=== PATIENT | female | born 1990 | race Caucasian/White ===

== ENCOUNTER 2023-11-14 15:30 | Emergency (ER) | payer BC, SELFPAY ==
[2023-11-14 15:33] VITALS: BP 155/93
--- NOTE | 2023-11-14 15:36 | ED.GENMED ---
History of Present Illness
General
Chief Complaint: Skin Problem
Time Seen by Provider: 11/14/23 15:36
Past History
Past History
ED Past Medical History: Other (Celiac disease, PCOS)
ED Past Surgical History: None
Social History
Tobacco: Smoker (1.5 PPD)
Alcohol: None
Drug: None
Personal: Single
Living: with family
Employment: Employed
Family History
Family History: Early CAD and CAD
Course
Orders/Labs/Results
Orders:
Orders
11/14/23 15:36
CR Elbow - Right Min 3 Views Urgent
Comment:
Reason For Exam: R elbow pain/swelling
ED Attending Note
-
Portions of this chart may have been created with voice recognition software.� Occasional wrong word or��sound alike� substitutions may have occurred due to the inherent limitations of voice recognition software.
Discharge Plan
Departure
Prescriptions:
No Action
prenat.vits,anastacio,[id number] Tablet
1 tab PO DAILY AT 0700
acetaminophen 325 mg Tablet
650 mg PO Q4HPRN PRN (Reason: mild pain) Qty: 20 0RF
oxycodone-acetaminophen 5-325 mg Tablet
1 tab PO Q4HPRN PRN (Reason: moderate pain) Qty: 10 0RF
ibuprofen 600 mg Tablet
600 mg PO Q6HPRN PRN (Reason: cramps) Qty: 20 0RF
sulfamethoxazole-trimethoprim [Bactrim DS] 800-160 mg tablet
1 tab PO BID Qty: 13 0RF
Discharge Date and Time
Print Language: URDU
--- NOTE | 2023-11-14 16:06 | ED.PDOC.TRB ---
ED Provider Triage
-
Patient seen by provider in Triage?: Seen in Triage
Attestation: A medical screening examination has been initiated by a qualified medical provider. Based on the assessment performed at this time, it has been determined that an emergent medical condition may exist and the patient has been informed
that further medical evaluation and possible additional diagnostic testing may be needed.
HPI: 33-year-old female presents the emergency department for evaluation of right elbow redness, swelling, and pain for the past 2 days. Went to urgent care was referred to the emergency department. She notes that she has psoriasis and had an
intralesional steroid injection performed approximately 10 to 14 days ago by her forest manager. Denies any fevers or chills. Is able to move the elbow however it is somewhat painful with range of motion
GENERAL: Alert , in no apparent distress
EYE: No visual abnormalities.
NECK: Trachea midline
ENT: No visible abnormalities.
LUNGS: No acute respiratory distress
NEUROLOGICAL: Alert and oriented
SKIN: Skin intact. No visible changes.
MUSCULOSKELETAL: Moving extremities normally. Moderate swelling of the right elbow with mild erythema and warmth. No pain with passive range of motion
PSYCH: Normal and appropriate interaction.
Will obtain x-rays for completeness. Appears to be a mild cellulitis, no clinical concern for septic arthritis
This is a medical evaluation conducted in person to initiate diagnostic evaluation and provide initial therapeutics. Please see further documentation by the treating clinician.
[2023-11-14] MEDS: KEFLEX 500 MG PO (16:48)
[2023-11-14 17:12] VITALS: BP 122/68
[2023-11-14 17:32] VITALS: BP 122/68
--- NOTE | 2023-11-14 17:40 | ED.GENMED ---
History of Present Illness
<Nicole Eduardo PA-C - Last Filed: 11/14/23 19:55>
General
Chief Complaint: Skin Problem
Source: patient
Exam Limitations: none
Time Seen by Provider: 11/14/23 15:36
History of Present Illness
History of Present Illness:
Patient is a 33-year-old female with past medical history of hidradenitis suppurativa and psoriasis for which she is currently receiving Cosentyx infusions who presents to the emergency department for evaluation of pain, swelling, redness to her
right elbow. Patient reports that it started 4 days ago but has gotten worse. Patient reports that she did have an injection to her psoriatic patch to her right elbow 3 weeks ago and is unsure whether could be related. Patient denies any other
known injury or trauma to her elbow. Patient reports that she works for [employer] and does do frequent heavy lifting. Patient denies any numbness, weakness, tingling of the extremity. Patient denies any recent fevers or chills.
Past History
<Nicole Eduardo PA-C - Last Filed: 11/14/23 19:55>
Past History
ED Past Medical History: Other (Celiac disease, PCOS)
ED Past Surgical History: None
Social History
Tobacco: Smoker (1.5 PPD)
Alcohol: None
Drug: None
Personal: Single
Living: with family
Employment: Employed
Family History
Family History: Early CAD and CAD
Review of Systems
<Nicole Eduardo PA-C - Last Filed: 11/14/23 19:55>
Review of Systems
Allergies reviewed?: Yes
All Other Systems: ROS reviewed and negative except as documented in HPI and ROS
Constitutional: Reports no symptoms
EENT: Reports no symptoms
Respiratory: Reports no symptoms
Cardiac: Reports no symptoms
ABD/GI: Reports no symptoms
: Reports no symptoms
Musculoskeletal: Reports no symptoms
Skin: Reports rash
Neurological: Reports no symptoms
Endocrine: Reports no symptoms
Hematologic/Lymphatic: Reports no symptoms
Psychiatric: Reports no symptoms
Phy Exam
<Nicole Eduardo PA-C - Last Filed: 11/14/23 19:55>
General Physical Exam
General Presentation: well appearing and no apparent distress
General Skin: warm and dry
General Habitus: normal
General Mental: alert
General Hydration: appears well hydrated
ENT Exam
ENT Exam: EOMI, pharynx normal, neck supple and normocephalic
Eye Exam
Eye Exam: PERRL, cornea clear and conjunctiva normal
Cardiovascular Exam
Cardiovascular Exam: regular rate/rhythm, no edema, no murmur and normal peripheral pulses
Pulmonary Exam
Pulmonary Exam: lungs clear, no respiratory distress, no rales, no crackles, no rhonchi, no stridor, no wheezing and no cough
Neurological Exam
Neurological Exam: alert, oriented x3, no motor deficits and speech normal
Musculoskeletal Exam
Musculoskeletal Exam: other (Mild erythema noted about the region of the right elbow with some extension into the right upper arm and right forearm, there is overlying warmth, mild ttp, there is mild swelling otherwise there is no swelling into the
distal forearm, hand, fingers, FROM of elbow, 2+ radial pulses, SILT)
Psychiatric Exam
Psychiatric Exam: normal mood/affect
Course
<Nicole Eduardo PA-C - Last Filed: 11/14/23 19:55>
Orders/Labs/Results
Orders:
Orders
11/14/23 15:36
CR Elbow - Right Min 3 Views Urgent
Comment:
Reason For Exam: R elbow pain/swelling
11/14/23 16:38
Cephalexin Monohydrate [Keflex] 500 mg PO NOW STA
Vital Signs
Initial and Last Documented VS:
Initial Vital Signs
Temp Pulse Resp BP Pulse Ox
97.7 F 100 16 155/93 99
11/14/23 15:33 11/14/23 15:33 11/14/23 15:33 11/14/23 15:33 11/14/23 15:33
Last Documented Vital Signs
Temp Pulse Resp BP Pulse Ox
97.7 F 82 18 122/68 97
11/14/23 15:33 11/14/23 17:32 11/14/23 17:32 11/14/23 17:32 11/14/23 17:32
<Mariusz Clark DO - Last Filed: 11/14/23 17:42>
Orders/Labs/Results
Orders:
Orders
11/14/23 15:36
CR Elbow - Right Min 3 Views Urgent
Comment:
Reason For Exam: R elbow pain/swelling
11/14/23 16:38
Cephalexin Monohydrate [Keflex] 500 mg PO NOW STA
Vital Signs
Initial and Last Documented VS:
Initial Vital Signs
Temp Pulse Resp BP Pulse Ox
97.7 F 100 16 155/93 99
11/14/23 15:33 11/14/23 15:33 11/14/23 15:33 11/14/23 15:33 11/14/23 15:33
Last Documented Vital Signs
Temp Pulse Resp BP Pulse Ox
97.7 F 82 18 122/68 97
11/14/23 15:33 11/14/23 17:32 11/14/23 17:32 11/14/23 17:32 11/14/23 17:32
<Nicole Eduardo PA-C - Last Filed: 11/14/23 19:55>
*Critical Care Note
Total Time (30-74mins, 75-104mins- exclusive of procedures): Not Applicable
<Nicole Eduardo PA-C - Last Filed: 11/14/23 19:55>
Update Note
Update Note:
33-year-old female presents to the emergency department for evaluation of right upper extremity pain, swelling, redness. Patient denies systemic subjective fevers or chills. On arrival, patient is mildly hypertensive, afebrile. On exam, patient
is well-appearing, she is in no acute distress, she has normal emergency care attendant strength bilaterally, she is neurovascularly intact. Radiographs were performed while the patient was in the waiting room and demonstrate no osseous abnormality. Patient seen
evaluated by myself as well as ED attending and we have high suspicion for cellulitis. Patient has full range of motion of the elbow, I have low suspicion for septic arthritis or septic bursitis at this time. Will treat with oral antibiotics and
have the patient follow closely with her PCP for reevaluation in 2 days. Patient was educated on return precautions, she expressed understanding of the plan and agreed.
ED Attending Note
<Nicole Eduardo PA-C - Last Filed: 11/14/23 19:55>
-
Portions of this chart may have been created with voice recognition software.� Occasional wrong word or��sound alike� substitutions may have occurred due to the inherent limitations of voice recognition software.
<Mariusz Clark DO - Last Filed: 11/14/23 17:42>
ED Attending Note
Patient seen and examined by attending physician: Yes
ED Attending Note:
I have reviewed and agree with his and treatment plan by Nicole Eduardo. My exam revealed 33-year-old female in no acute distress. Mild swelling of right arm, erythema right proximal arm, do not suspect septic arthritis. Suspect likely cellulitis.
Do not suspect DVT. Stable for discharge, treat with Keflex.
Discharge Plan
Departure
Patient Disposition: Home (Routine Discharge)
Date of Disposition: 11/14/23
Time of Disposition: 16:39
Patient with high blood pressure during this ER visit?: Yes
Condition: Good
Covid-19: Not Applicable
Discharge Problem:
Cellulitis of right elbow
Instructions: Cellulitis (Skin Infection), Adult (DC)
Prescriptions:
New
cephalexin 500 mg capsule
500 mg PO QID 10 Days Qty: 40 0RF
Discontinued
oxycodone-acetaminophen 5-325 mg Tablet
1 tab PO Q4HPRN PRN (Reason: moderate pain) Qty: 10 0RF
sulfamethoxazole-trimethoprim [Bactrim DS] 800-160 mg tablet
1 tab PO BID Qty: 13 0RF
No Action
prenat.vits,anastacio,[id number] Tablet
1 tab PO DAILY AT 0700
acetaminophen 325 mg Tablet
650 mg PO Q4HPRN PRN (Reason: mild pain) Qty: 20 0RF
ibuprofen 600 mg Tablet
600 mg PO Q6HPRN PRN (Reason: cramps) Qty: 20 0RF
Stand Alone Forms: Return to Work
Activity Restrictions/Additional Instructions:
You were seen in the emergency department for evaluation of pain, redness, and swelling to your right elbow. While you were in the emergency department you had x-rays performed which show no dangerous abnormality. We believe your symptoms are due
to a skin infection called cellulitis. Please take all of the antibiotics that were prescribed to you, exactly as directed, even if you start to feel better. Please try to rest and elevate your elbow. You may take ibuprofen or Tylenol if needed
for pain. Please return to the emergency department for severe pain, swelling, redness, streaking redness, fever greater than 100.4F, or for any other worsening or concerning symptoms.
Interventions
Interventions:
*Risk Screen - Suicide Last Done: 11/14/23 15:33
*General Assessment Last Done: 11/14/23 15:33
*Neglect/Abuse Screening Last Done: 11/14/23 15:33
ED- Fall Risk Assessment Last Done: 11/14/23 16:51
*ED COVID-19 Vaccine History Last Done: 11/14/23 16:50
*Nursing Disposition Last Done: 11/14/23 17:32
ED-Skin Assessment Last Done: 11/14/23 16:49
Discharge Date and Time
Discharge Date/Time: 11/14/23 17:34
Print Language: NIGERIEN
== END 2023-11-14 17:34 | disposition home or self-care (01) ==
LOC: EMR 15:30
PROVIDERS: EMERGENCY PHYSICIAN Emergency Medicine; FAMILY PHYSICIAN Family Medicine
DX: L03.113 Cellulitis of right upper limb (principal); M25.521 Pain in right elbow; M25.421 Effusion, right elbow; R03.0 Elevated blood-pressure reading, without diagnosis of hypertension; K90.0 Celiac disease; E28.2 Polycystic ovarian syndrome; L40.9 Psoriasis, unspecified; F17.210 Nicotine dependence, cigarettes, uncomplicated; Z88.8 Allergy status to other drugs, medicaments and biological substances
CPT/HCPCS: 99283; 73080